=== PATIENT | female | born 1930 | race Caucasian/White ===

== ENCOUNTER 2019-05-14 11:45 | Emergency (ER) | payer MEDICARE ==
[~2019-05-14] VITALS: Ht 152.4 cm; Wt 57.2 kg
--- NOTE | 2019-05-14 11:45 | NUR ---
Placed in room 06 . Placed on quality assurance monitor final, blood pressure machine and pulse oximeter. To gown for exam. Side rails up.
--- NOTE | 2019-05-14 11:48 | NUR ---
Pt AAOx4 BIB ALS from [facility] c/o uncontrolled bleeding from wound to L femoral area r/t surgical site. Pt reports she has been "in and out of the hospital" for the same reason. Denies pain at the moment. Skin pink dry and warm, breathing even and unlabored. No other injuries/complaints per pt/noted. Will continue to monitor.
[2019-05-14 11:57] VITALS: BP_SYST 114
--- NOTE | 2019-05-14 12:00 | NUR ---
ER Dr. Roberts at bedside examining patient.
[2019-05-14] MEDS ORDERED: NACL 0.9% 1,000 ML IV SCH (12:10)
[2019-05-14] MEDS ORDERED: LIDOCAINE 1% 10 MG/ML, 20 ML MDV INJ ONE (12:15)
--- NOTE | 2019-05-14 12:35 | NUR ---
Radiology at bedside for CXR
[2019-05-14 12:42] LABS: BASOPHILS # (AUTO) 0.1 K/uL (0.0-0.2); EOSINOPHILS # (AUTO) 0.2 K/uL (0.0-0.4); HEMATOCRIT 26.9 % (36-48); HEMOGLOBIN 8.9 g/dL (12.0-16.0); LYMPHOCYTES # (AUTO) 0.5 K/uL (1.0-5.5); LYMPHOCYTES % (AUTO) 7.8 % (20.5-51.5); MEAN CORPUSCULAR HEMOGLOBIN 31 pg (27-31); MEAN CORPUSCULAR HGB CONC 33 % (32-36); MEAN CORPUSCULAR VOLUME 93 fL (79.0-98.0); MONOCYTES # (AUTO) 0.7 K/uL (0.0-1.0); MONOCYTES % (AUTO) 10.8 % (1.7-9.3); NEUTROPHILS # (AUTO) 5.1 K/uL (1.8-7.7); NEUTROPHILS % (AUTO) 77.4 % (40.0-70.0); PLATELET COUNT (AUTO) 314 K/uL (130-430); RED BLOOD CELL COUNT(AUTO) 2.89 MIL/uL (4.2-6.2); RED CELL DISTRIBUTION WIDTH 16.4 % (9.0-15.0); WHITE BLOOD COUNT (AUTO) 6.6 K/uL (4.8-10.8)
[2019-05-14 12:46] LABS: ANION GAP 6 (5-15); CALCIUM 8.9 mg/dL (8.4-11.0); CHLORIDE 107 mmol/L (98-107); CREATININE 1.26 mg/dL (0.55-1.30); GLUCOSE 126 mg/dL (70-99); POTASSIUM 4.1 mmol/L (3.5-5.1); SODIUM SERUM 138 mmol/L (136-145); UREA NITROGEN, BLOOD 29 mg/dL (8-21)
[2019-05-14 12:50] LABS: INR 1.4 (0.8-1.2); PROTHROMBIN TIME 13.9 SECS (9.5-12.5)
[2019-05-14 12:51] LABS: ALANINE AMINOTRANSFERASE 9 U/L (12-78); ALBUMIN 2.9 g/dL (3.4-4.8); ASPARTATE AMINOTRANSFERASE 24 U/L (10-37); TOTAL BILIRUBIN 1.4 mg/dL (0.0-1.0)
--- NOTE | 2019-05-14 13:00 | NUR ---
Pt receivin IVF no acute distress noted.
--- NOTE | 2019-05-14 14:00 | NUR ---
Bleeding controlled.Pt to recieve wound repair.
--- NOTE | 2019-05-14 15:00 | NUR ---
Pt recievd wound repair.wound well .approx after sutures.
--- NOTE | 2019-05-14 15:30 | NUR ---
Pt received wound care tolerated well.
[2019-05-14] MEDS ORDERED: BACITRACIN 1 GM OINT TP ONE (15:51)
[2019-05-14 16:00] VITALS: BP_SYST 116
--- NOTE | 2019-05-14 16:00 | NUR ---
Patient given written and verbal discharge instructions and verbalizes understanding. ER MD discussed with patient the results and treatment provided. Patient in stable condition. ID arm band removed. IV catheter removed intact and dressing applied, no active bleeding. no Rx of given. Patient educated on pain management and to follow up with PMD. Pain Scale 0. Opportunity for questions provided and answered. Medication side effect fact sheet provided.
== END 2019-05-14 16:00 | disposition home or self-care (01) ==
LOC: SED 11:45
DX: S71.112A Laceration without foreign body, left thigh, initial encounter (principal); L76.22 Postprocedural hemorrhage of skin and subcutaneous tissue following other procedure; I48.2 Chronic atrial fibrillation; D53.9 Nutritional anemia, unspecified; I10 Essential (primary) hypertension; M19.90 Unspecified osteoarthritis, unspecified site; X58.XXXA Exposure to other specified factors, initial encounter; Y93.89 Activity, other specified; Y92.89 Other specified places as the place of occurrence of the external cause; Y99.8 Other external cause status
CPT/HCPCS: 12001; 36415; 71045; 80053; 85025; 85610; 85730; 99284; J2001; J7030; 93005